=== PATIENT | female | born 1985 | race Caucasian/White ===

== ENCOUNTER 2024-02-10 21:33 | Emergency (ER) | payer OTHER ==
[2024-02-10 21:44] VITALS: BP 145/88; PULSE 76; RESP 19; TEMP 97.8; BMI 29.2
[2024-02-10] MEDS ORDERED: DIPHTH,PERTUSS(ACELL),TET 0.5 ML DISP.SYRIN IM ONE (22:36)
[2024-02-10] MEDS: TETANUS AND DIPHTHERIA TOXOID 0.5 ML DISP.SYRIN IM ONE (22:37)
[2024-02-10] MEDS: DIPHTH,PERTUSS(ACELL),TET 0.5 ML DISP.SYRIN IM ONE (22:40)
[2024-02-10] MEDS ORDERED: ACETAMINOPHEN 325 MG TABLET (FP) ONE (23:10)
[2024-02-10] MEDS: ACETAMINOPHEN 500 MG TABLET (FP) PO ONE (23:11)
== END 2024-02-10 23:35 | disposition home or self-care (01) ==
LOC: JER 21:33
PROC: 0HQ0XZZ Repair Scalp Skin, External Approach (ICD-10-PCS; principal; 2024-02-10)
PROC: 3E0234Z Introduction of Serum, Toxoid and Vaccine into Muscle, Percutaneous Approach (ICD-10-PCS; 2024-02-10)
DX: S01.01XA Laceration without foreign body of scalp, initial encounter (principal); W01.198A Fall on same level from slipping, tripping and stumbling with subsequent striking against other object, initial encounter; Y93.01 Activity, walking, marching and hiking; Z23 Encounter for immunization
CPT/HCPCS: 70450-TC; 72125-TC; 90715; 99284-25

== ENCOUNTER 2024-02-20 10:25 | Emergency (ER) | payer OTHER ==
[2024-02-20 10:37] VITALS: BP 131/82; PULSE 70; RESP 18; TEMP 98.1; BMI 24.7
== END 2024-02-20 10:52 | disposition home or self-care (01) ==
LOC: JERFT 10:25
DX: Z48.02 Encounter for removal of sutures (principal)
CPT/HCPCS: 99281-25